=== PATIENT | female | born 1985 | race Hispanic/Latino ===

== ENCOUNTER 2021-01-03 08:23 | Inpatient (IN) | payer MEDICAID, OTHER, SELFPAY ==
[2021-01-03] MEDS ORDERED: Diphenoxylate HCl/Atropine Tablet PO PRN ×2 (09:03)
[2021-01-03] MEDS ORDERED: Methylergonovine 0.2 MG/ML VIAL IM PRN (09:03)
[2021-01-03] MEDS ORDERED: Acetaminophen 500 MG TAB PO PRN (09:03)
[2021-01-03] MEDS ORDERED: Lidocaine 1% (PF) 30 ML VIAL SC PRN (09:03)
[2021-01-03] MEDS ORDERED: Ondansetron PF 4 MG/2 ML Vial IVP PRN ×2 (09:03→11:15)
[2021-01-03] MEDS ORDERED: Misoprostol 200 MCG TAB PR PRN (09:03)
[2021-01-03] MEDS ORDERED: hydrALAZINE 20 MG/ML VIAL SLOW IVP PRN ×2 (09:03→15:31)
[2021-01-03] MEDS ORDERED: Carboprost 250 MCG/ML AMP IM PRN (09:03)
[2021-01-03] MEDS ORDERED: Butorphanol Tartrate 1 MG/ML VIAL SLOW IVP PRN (09:03)
[2021-01-03] MEDS ORDERED: Promethazine HCl 25 MG/ML VIAL IM PRN ×3 (09:03→15:31)
[2021-01-03] MEDS ORDERED: Ibuprofen 800 MG TAB PO PRN (09:03)
[2021-01-03] MEDS ORDERED: HYDROcodone/Acetaminophen 5/325 mg Tablet PO PRN ×4 (09:03→15:31)
[2021-01-03] MEDS ORDERED: Penicillin G Potassium 5 MILL.UNITS in Sodium Chloride 0.9% 100 ML IVPB SCH (09:15)
[2021-01-03] MEDS ORDERED: Lactated Ringer's 1,000 ML IV SCH (09:15)
[2021-01-03] MEDS ORDERED: Penicillin G Potassium 5 MILL.UNITS VIAL ONE (09:26)
[2021-01-03 09:42] LABS: Mean Corpuscular HGB CONC 32.6 g/dL (32.0-36.0); Mean Corpuscular Hemoglobin 31.7 pg (27.0-33.0); Mean Corpuscular Volume 97.1 fl (81.6-98.3); Mean Platelet Volume 9.3 fl (7.4-10.4); Platelet Count 250 10x3/uL (150-450); RBC Distribution Width 14.6 % (11.5-14.5); Red Blood Cell (RBC) Count 3.79 10x6/uL (3.90-5.03); White Blood Cell (WBC) Count 9.4 10x3/uL (3.5-10.5)
[2021-01-03 10:17] LABS: Hep B Surf Ag Non-Reactive S/CO (NonReactive); Syphilis Antibody Nonreactive (Nonreactive); Syphilis Antibody Index 0.06 S/CO (<1.00 Non-Reactive)
[2021-01-03 10:19] LABS: HBSAg Index 0.18 S/CO (0-0.99)
[2021-01-03] MEDS ORDERED: Fentanyl 4 mcg/Bup 0.1% Cadd 100 ML ONE (10:19)
[2021-01-03] MEDS ORDERED: Communication Order-Pharmacy FS SCH (11:15)
[2021-01-03] MEDS ORDERED: diphenhydrAMINE 50 MG/ML VIAL IVP PRN (11:15)
[2021-01-03] MEDS ORDERED: Naloxone HCl 0.4 mg/ml Vial IVP PRN ×2 (11:15)
[2021-01-03] MEDS ORDERED: Acetaminophen 325 MG TAB PO PRN (11:15)
[2021-01-03] MEDS ORDERED: Fentanyl 4 mcg/Bupivacaine 0.1% Cassette 100 ML EPIDURAL SCH (11:15)
[2021-01-03] MEDS ORDERED: Lactated Ringer's 500 ML IV PRN (11:15)
[2021-01-03 11:27] VITALS: BMI 39.1
[2021-01-03] MEDS ORDERED: ePHEDrine Sulfate 50 MG/10 ML VIAL SLOW IVP PRN (11:49)
[2021-01-03] MEDS ORDERED: NS w/ Oxytocin 30 units 500 ML IVPB PRN (11:52)
[2021-01-03] MEDS ORDERED: Penicillin G 2.5 MILL.units 2.5 MILL.UNITS in Premix Bag 1 BAG IVPB SCH (12:00)
[2021-01-03] MEDS ORDERED: Lanolin Ointment 7 GM TUBE TOP PRN (15:31)
[2021-01-03] MEDS ORDERED: Bisacodyl 10 MG SUPP PR PRN (15:31)
[2021-01-03] MEDS ORDERED: diphenhydrAMINE 25 MG CAP PO PRN (15:31)
[2021-01-03] MEDS ORDERED: Milk Of Magnesia 30 ML UDCUP PO PRN (15:31)
[2021-01-03] MEDS ORDERED: Adacel (T-DAP) 0.5 ML SYRINGE IM ONE (15:31)
[2021-01-03] MEDS ORDERED: Benzocaine-Menthol 82.5 ML CAN TOP PRN (15:31)
[2021-01-03] MEDS ORDERED: NS w/ Oxytocin 30 units 500 ML IVPB SCH (16:00)
[2021-01-03] MEDS: Docusate Calcium (SURFAK) 240 MG CAP PO SCH (22:15)
[2021-01-03] MEDS: Ibuprofen 800 MG TAB PO SCH (22:15)
[2021-01-03] MEDS: Ferrous Sulfate 325 MG TAB PO SCH (22:16)
[2021-01-04] MEDS: Ibuprofen 800 MG TAB PO SCH ×2 (06:27→13:49)
[2021-01-04] MEDS ORDERED: Prenatal Vitamin 1 TAB PO SCH (09:00)
[2021-01-04] MEDS: Docusate Calcium (SURFAK) 240 MG CAP PO SCH (09:10)
[2021-01-04] MEDS: Ferrous Sulfate 325 MG TAB PO SCH (09:11)
[2021-01-04 13:55] VITALS: BP 98/55; TEMP 98
== END 2021-01-04 17:40 | disposition home or self-care (01) | DRG 805 ==
LOC: CSHLD 08:23 → OBSVTOIN 09:03 → CSHPP 18:10
PROVIDERS: ADMIT Family Medicine; ATTEND Family Medicine
PROC: 10E0XZZ Delivery of Products of Conception, External Approach (ICD-10-PCS; principal; 2021-01-03)
PROC: 0UQMXZZ Repair Vulva, External Approach (ICD-10-PCS; 2021-01-03)
PROC: 4A0HXCZ Measurement of Products of Conception, Cardiac Rate, External Approach (ICD-10-PCS; 2021-01-03)
DX: O34.219 Maternal care for unspecified type scar from previous cesarean delivery (principal); O60.14X0 Preterm labor third trimester with preterm delivery third trimester, not applicable or unspecified; Z37.0 Single live birth; Z3A.36 36 weeks gestation of pregnancy
CPT/HCPCS: 36415; 51702; 85027; 86780; 86850; 86900; 86901; 87340; 99285; J2540

== ENCOUNTER 2023-02-11 12:04 | Inpatient (IN) | payer MEDICAID, OTHER ==
[~2023-02-11 12:04] MED LIST: Bupivacaine/Epinephrine 0.25% 30 ML VIAL ONE
[2023-02-11 12:31] VITALS: BMI 37.1
[2023-02-11] MEDS: Lactated Ringer's 1,000 ML IV SCH ×2 (12:53→14:21)
[2023-02-11] MEDS ORDERED: Misoprostol 200 MCG TAB PR PRN (13:57)
[2023-02-11] MEDS ORDERED: Carboprost 250 MCG/ML AMP IM PRN (13:57)
[2023-02-11] MEDS ORDERED: Ondansetron PF 4 MG/2 ML Vial IVP PRN (13:57)
[2023-02-11] MEDS ORDERED: Promethazine HCl 25 MG/ML VIAL IM PRN (13:57)
[2023-02-11] MEDS ORDERED: Diphenoxylate HCl/Atropine Tablet PO PRN ×2 (13:57)
[2023-02-11] MEDS ORDERED: Methylergonovine 0.2 MG/ML VIAL IM PRN (13:57)
[2023-02-11] MEDS ORDERED: hydrALAZINE 20 MG/ML VIAL SLOW IVP PRN (13:57)
[2023-02-11] MEDS ORDERED: Tranexamic Acid 1,000 MG/10 ML VIAL IVP PRN (13:57)
[2023-02-11] MEDS ORDERED: Butorphanol Tartrate 1 MG/ML VIAL SLOW IVP PRN (13:57)
[2023-02-11] MEDS ORDERED: Fentanyl 100 MCG/2 ML VIAL SLOW IVP PRN (13:57)
[2023-02-11] MEDS ORDERED: NS w/ Oxytocin 30 units 500 ML IV SCH (14:00)
[2023-02-11] MEDS ORDERED: NIFEdipine 10 MG CAP PO PRN (14:04)
[2023-02-11] MEDS ORDERED: NIFEdipine XL 30 MG TAB PO STA (14:04)
[2023-02-11] MEDS ORDERED: Penicillin G Potassium 5 MILL.UNITS VIAL ONE (14:10)
[2023-02-11] MEDS ORDERED: Betamet Acet/Betamet Na Ph 30 MG/5 ML VIAL ONE (14:10)
[2023-02-11] MEDS ORDERED: NIFEdipine 10 MG CAP ONE (14:11)
[2023-02-11] MEDS ORDERED: Penicillin G Potassium 5 MILL.UNITS in Sodium Chloride 0.9% 100 ML IVPB SCH (14:15)
[2023-02-11] MEDS ORDERED: NIFEdipine 10 MG CAP PO SCH (14:15)
[2023-02-11] MEDS: Betamet Acet/Betamet Na Ph 30 MG/5 ML VIAL IM SCH (14:36)
[2023-02-11 15:02] LABS: #Basophils 0.1 10x3/uL (0.0-0.2); #Eosinphils 0.1 10x3/uL (0.0-0.5); #Monocytes 0.7 10x3/uL (0.0-1.1); #Neutrophils 7.3 10x3/uL (1.5-8.4); %Basophils 0.5 % (0.0-2.0); %Eosinophils 0.8 % (0.0-6.0); %Lymphocytes 17.7 % (18.0-47.0); %Neutrophils 72.4 % (40.0-75.0); Hemoglobin 12.2 g/dL (12.0-15.5); Mean Corpuscular HGB CONC 33.2 g/dL (32.0-36.0); Mean Corpuscular Hemoglobin 31.9 pg (27.0-33.0); Mean Corpuscular Volume 96.3 fl (81.6-98.3); Mean Platelet Volume 9.6 fl (7.4-10.4); Platelet Count 272 10x3/uL (150-450); RBC Distribution Width 14.7 % (11.5-14.5); Red Blood Cell (RBC) Count 3.82 10x6/uL (3.90-5.03); White Blood Cell (WBC) Count 10.1 10x3/uL (3.5-10.5)
[2023-02-11 15:37] LABS: HBSAg Index 0.13 S/CO (0-0.99); Hep B Surf Ag - L&D Non-Reactive S/CO (NonReactive)
[2023-02-11 15:38] LABS: Syphilis Antibody Nonreactive (Nonreactive); Syphilis Antibody Index 0.05 S/CO (<1.00 Non-Reactive)
[2023-02-11 16:11] LABS: Bilirubin Neg (Negative); Blood, Urine 150 (Negative); Clarity Clear (Clear); Glucose, Urine (Dipstick) Normal (Negative); Ketone, Urine 15 mg/dL (Negative); Leukocyte Negative (Negative); Nitrite Negative (Negative); Protein, Urine (Dipstick) Negative (Neg-Trace); Urobilinogen Normal mg/dL (Less than 2)
[2023-02-11 16:18] LABS: Amphetamine Not Detected (NotDetected); Barbiturates Screen Not Detected (NotDetected); Benzodiazepine Screen Not Detected (NotDetected); Cocaine Metabolite Screen Not Detected (NotDetected); Methadone Not Detected (NotDetected); Methamphetamine Not Detected (NotDetected); Opiate Screen Not Detected (NotDetected); Oxycodone Screen Not Detected (NotDetected); Phencyclidine (PCP) Not Detected (NotDetected); THC/Cannabinoid Screen Not Detected (NotDetected); Tricyclic Screen Not Detected (NotDetected)
[2023-02-11 16:26] LABS: Bacteria/HPF None Seen HPF (None Seen); Squamous Epithelial 0-3 HPF (0-3); WBC/HPF 0-3 HPF (0-3)
[2023-02-11] MEDS ORDERED: Azithromycin 500 MG VIAL ONE (17:17)
[2023-02-11] MEDS ORDERED: Magnesium Sulfate 20 gm/500 ml 20 GM/500 ML BAG ONE (17:17)
[2023-02-11] MEDS ORDERED: Magnesium Sulfate 20 GM/WATER 500 ML BAG IVPB SCH (18:30)
[2023-02-11] MEDS ORDERED: Azithromycin 500 MG in Sodium Chloride 0.9% 250 ML 250 ML IVPB SCH (18:30)
[2023-02-11] MEDS ORDERED: Magnesium Sulfate 20 gm/500 ml 4 GM/100 ML BAG IVPB SCH (18:45)
[2023-02-11] MEDS: Acetaminophen 500 MG TAB PO PRN (19:13)
[2023-02-11] MEDS: Penicillin G 2.5 MILL.units 2.5 MILL.UNITS in Premix Bag 1 BAG IVPB SCH (19:59)
[2023-02-11] MEDS ORDERED: Doxylamine 25 MG TAB PO SCH (21:45)
[2023-02-12] MEDS: Penicillin G 2.5 MILL.units 2.5 MILL.UNITS in Premix Bag 1 BAG IVPB SCH ×7 (00:08→22:01)
[2023-02-12 00:46] LABS: Chlamydia by PCR, Vaginal Swab Not Detected (NotDetected); GC by PCR, Vaginal Swab Not Detected (NotDetected)
[2023-02-12] MEDS: Magnesium Sulfate 20 gm/500 ml 20 GM/500 ML BAG IVPB SCH ×2 (03:08→13:29)
[2023-02-12] MEDS: Lactated Ringer's 1,000 ML IV SCH (07:12)
[2023-02-12] MEDS: Betamet Acet/Betamet Na Ph 30 MG/5 ML VIAL IM SCH (14:33)
[2023-02-12] MEDS ORDERED: Doxylamine 25 MG TAB PO PRN (17:40)
[2023-02-12 19:42] LABS: Group B Streptococcus by PCR DETECTED (NotDetected)
[2023-02-12] MEDS: Acetaminophen 500 MG TAB PO PRN (22:06)
[2023-02-12 22:26] LABS: Magnesium 5.5 mg/dL (1.6-2.6)
[2023-02-13] MEDS: Penicillin G 2.5 MILL.units 2.5 MILL.UNITS in Premix Bag 1 BAG IVPB SCH ×4 (00:49→17:00)
[2023-02-13] MEDS: Magnesium Sulfate 20 gm/500 ml 20 GM/500 ML BAG IVPB SCH (00:49)
[2023-02-13] MEDS: Lactated Ringer's 1,000 ML IV SCH ×2 (00:49)
[2023-02-14] MEDS: AMOXicillin 250 MG CAP PO SCH ×3 (09:25→20:36)
[2023-02-14 09:30] LABS: Fetal Membranes Rupture No Membranes Rupture (No Rupture)
[2023-02-14] MEDS ORDERED: hydrOXYzine Pamoate 25 mg Capsule PO SCH (15:30)
[2023-02-14] MEDS: Lactated Ringer's 1,000 ML IV SCH ×2 (16:42→16:43)
[2023-02-14] MEDS: Betamet Acet/Betamet Na Ph 30 MG/5 ML VIAL IM SCH (16:43)
[2023-02-14] MEDS: Penicillin G 2.5 MILL.units 2.5 MILL.UNITS in Premix Bag 1 BAG IVPB SCH (16:43)
[2023-02-15] MEDS: Lactated Ringer's 1,000 ML IV SCH ×2 (07:52→08:25)
[2023-02-15] MEDS ORDERED: Sodium Chloride 0.9% 100 ML ONE (08:23)
[2023-02-15] MEDS ORDERED: Fentanyl 2 mcg/Bup 0.1% Cadd 100 ML ONE (08:23)
[2023-02-15] MEDS ORDERED: Penicillin G Potassium 5 MILL.UNITS VIAL ONE (08:23)
[2023-02-15] MEDS ORDERED: Penicillin G Potassium 5 MILL.UNITS in Sodium Chloride 0.9% 100 ML IVPB SCH (08:30)
[2023-02-15] MEDS ORDERED: ePHEDrine Sulfate 50 MG/10 ML VIAL SLOW IVP PRN (08:53)
[2023-02-15] MEDS ORDERED: Acetaminophen 325 MG TAB PO PRN (08:53)
[2023-02-15] MEDS ORDERED: Naloxone HCl 0.4 mg/ml Vial IVP PRN ×2 (08:53)
[2023-02-15] MEDS ORDERED: Promethazine HCl 25 MG/ML VIAL IM PRN (08:53)
[2023-02-15] MEDS ORDERED: Ondansetron PF 4 MG/2 ML Vial IVP PRN ×2 (08:53→18:13)
[2023-02-15] MEDS ORDERED: Lactated Ringer's 500 ML IV PRN (08:53)
[2023-02-15] MEDS ORDERED: diphenhydrAMINE 50 MG/ML VIAL IVP PRN (08:53)
[2023-02-15] MEDS ORDERED: Moisturizing Cream (Eucerin) 113 GM JAR TOP PRN (08:53)
[2023-02-15] MEDS ORDERED: Fentanyl 2 mcg/Bupivacaine 0.1% Cassette 100 ML EPIDURAL SCH (09:00)
[2023-02-15] MEDS ORDERED: Communication Order-Pharmacy FS SCH (09:00)
[2023-02-15] MEDS: NS w/ Oxytocin 30 units 500 ML IV SCH ×2 (11:02→13:08)
[2023-02-15] MEDS ORDERED: Pen G 2.5 MILL.UNITS/50 ML BAG IVPB SCH (12:30)
[2023-02-15] MEDS ORDERED: Ibuprofen 800 MG TAB PO SCH (13:00)
[2023-02-15] MEDS: AMOXicillin 250 MG CAP PO SCH ×2 (15:40→15:48)
[2023-02-15] MEDS ORDERED: Milk Of Magnesia 30 ML UDCUP PO PRN (18:13)
[2023-02-15] MEDS ORDERED: Lanolin Ointment 7 GM TUBE TOP PRN (18:13)
[2023-02-15] MEDS ORDERED: diphenhydrAMINE 25 MG CAP PO PRN (18:13)
[2023-02-15] MEDS ORDERED: HYDROcodone/Acetaminophen 5/325 mg Tablet PO PRN (18:13)
[2023-02-15] MEDS ORDERED: hydrALAZINE 20 MG/ML VIAL SLOW IVP PRN (18:13)
[2023-02-15] MEDS ORDERED: Boostrix 0.5 ML (Tdap) VIAL (>/=7 yrs of age) IM ONE (18:13)
[2023-02-15] MEDS ORDERED: Bisacodyl 10 MG SUPP PR PRN (18:13)
[2023-02-15] MEDS: Docusate 100 MG CAP PO SCH (21:24)
[2023-02-15] MEDS: Ibuprofen 800 MG TAB PO SCH (21:24)
[2023-02-16] MEDS: Ibuprofen 800 MG TAB PO SCH ×2 (05:21→14:02)
[2023-02-16] MEDS: Ferrous Sulfate 325 MG TAB PO SCH ×2 (07:01→15:22)
[2023-02-16] MEDS: Docusate 100 MG CAP PO SCH (08:44)
[2023-02-16] MEDS ORDERED: Prenatal Vitamin 1 TAB PO SCH (09:00)
[2023-02-16 11:24] VITALS: TEMP 97.7
[2023-02-16 20:45] VITALS: BP 114/65
== END 2023-02-16 20:35 | disposition home or self-care (01) | DRG 805 ==
LOC: CSHLD/OP 12:04 → CSHLD 17:56 → CSHANTE 02-14 17:05 → CSHLD 02-15 06:34 → CSHPP 02-15 14:30
PROVIDERS: ADMIT Family Medicine; ATTEND Family Medicine
PROC: 10E0XZZ Delivery of Products of Conception, External Approach (ICD-10-PCS; principal; 2023-02-15)
PROC: 10907ZC Drainage of Amniotic Fluid, Therapeutic from Products of Conception, Via Natural or Artificial Opening (ICD-10-PCS; 2023-02-15)
DX: O67.9 Intrapartum hemorrhage, unspecified (principal); O60.14X0 Preterm labor third trimester with preterm delivery third trimester, not applicable or unspecified; O34.219 Maternal care for unspecified type scar from previous cesarean delivery; Z37.0 Single live birth; Z79.899 Other long term (current) drug therapy; Z3A.32 32 weeks gestation of pregnancy
CPT/HCPCS: 36415; 51702; 59025; 76815; 80306; 81001; 83735; 84112; 86780; 86850; 86900; 86901; 87340; 87480; 87491; 87510; 87591; 87653; 87660; 88307; 94760; 99285; J0456; J0702; J2405; J2540; J2590; J3475; J3490; J7120; Q0177